=== PATIENT | male | born 1980 | race Caucasian/White ===

== ENCOUNTER 2017-01-22 10:31 | Emergency (ER) | payer BC ==
[~2017-01-22] VITALS: Ht 185.4 cm; Wt 101.0 kg
[2017-01-22 10:34] VITALS: Ht 185.4 cm; Wt 101.0 kg
[2017-01-22] MEDS ORDERED: ONDANSETRON 4 MG INJ IV STA (11:56)
[2017-01-22] MEDS ORDERED: SOD CHLORIDE 0.9% 500 ML IV ONE (12:00)
[2017-01-22 12:26] LABS: ADD SCAN DIFF NO
[2017-01-22 12:30] LABS: BASOPHIL # 0.1 10^3/ul (0.0-0.1); BASOPHILS % 0.6 % (0.0-2.0); EOSINOPHILS % 0.3 % (0.0-7.0); HEMATOCRIT 53.1 % (42.0-52.0); HEMOGLOBIN 18.3 g/dl (14.0-18.0); LYMPHOCYTES # 1.1 10^3/ul (0.8-2.9); LYMPHOCYTES % 11.8 % (15.0-51.0); MEAN CORPUSCULAR HEMOGLOBIN 30.8 pg (29.0-33.0); MEAN CORPUSCULAR HGB CONC 34.5 g/dl (32.0-37.0); MEAN CORPUSCULAR VOLUME 89.4 fl (82.0-101.0); MEAN PLATELET VOLUME 10.7 fl (7.4-10.4); MONOCYTE # 0.7 10^3/ul (0.3-0.9); NEUTROPHIL # 7.7 10^3/ul (1.6-7.5); NEUTROPHILS % 79.7 % (39.0-77.0); PLATELET COUNT 222 10^3/UL (140-415); RED BLOOD COUNT 5.94 10^6/ul (4.70-6.10); RED CELL DISTRIBUTION WIDTH 12.2 % (11.5-14.5); WHITE BLOOD COUNT 9.7 10^3/ul (4.8-10.8)
[2017-01-22 12:44] LABS: ALBUMIN 5.2 g/dl (3.3-4.9); ALBUMIN/GLOBULIN RATIO 1.79; BILIRUBIN,INDIRECT 0.3 mg/dl (0-1.1); BILIRUBIN,TOTAL 0.3 mg/dl (0.2-1.3); CREATININE 1.38 mg/dl (0.61-1.24); POTASSIUM 4.7 mmol/L (3.5-5.1); TOTAL PROTEIN 8.1 g/dl (6.1-8.1)
[2017-01-22 14:01] LABS: ADD UMIC YES; UR ASCORBIC ACID 20 mg/dL (NEGATIVE); UR BILIRUBIN (Dip) NEGATIVE (NEGATIVE); UR BLOOD (Dip) NEGATIVE (NEGATIVE); UR CLARITY SLIGHTLY CLOUDY (CLEAR); UR COLOR YELLOW (YELLOW); UR GLUCOSE (Dip) NEGATIVE (NEGATIVE); UR KETONES (Dip) TRACE mg/dL (NEGATIVE); UR LEUKOCYTE ESTERASE (Dip) NEGATIVE Leu/ul (NEGATIVE); UR MUCUS MANY /HPF (NONE SEEN); UR NITRITE (Dip) NEGATIVE (NEGATIVE); UR RBC 1 /HPF (0-5); UR SPECIFIC GRAVITY (Dip) 1.029 (1.003-1.030); UR TOTAL PROTEIN (Dip) 1+ mg/dl (NEGATIVE); UR UROBILINOGEN (Dip) 1+ mg/dL (NEGATIVE)
[2017-01-22 14:20] VITALS: BP 122/70; PULSE 90; RESP 18; TEMP 98.2
--- NOTE | 2017-01-22 15:39 | ERD ---
ER Documentation Chief Complaint Date/Time DATE: 01/22/17 TIME: 15:21 Chief Complaint dizziness, blurred vision, nausea x 1 hour HPI Patient is a 36-year-old male who presents to the emergency department for concerns of "difficulty focusing" and blurred vision which occurred 1 hour prior to arrival. Patient states that he return to work today after having the weekend off. Patient states when he sat down and rest as he felt as if "his eyes could not focus". Patient states he "felt off." Patient denied any dizziness or room spinning sensation. Patient denied any syncopal episodes. Upon arrival to examination room, patient states he does feel that his symptoms have improved. Patient denied any chest pain, shortness of breath, vomiting, left upper extremity pain, loss of consciousness. Patient is currently taking antibiotics for a wound he developed to his right upper foot after being at the [employer] this past weekend. Patient also reports a rash that developed on his bilateral lower extremities this morning. Patient denies any fevers or chills. ROS All systems reviewed and are negative except as per history of present illness. Allergies Allergies: Coded Allergies: No Known Allergy (Unverified , 01/22/17) PMhx/Soc History of Surgery: Yes (Bilateral shoulder, R knee) Anesthesia Reaction: No Hx Neurological Disorder: No Hx Respiratory Disorders: No Hx Cardiac Disorders: No Hx Psychiatric Problems: No Hx Miscellaneous Medical Probl: No Hx Alcohol Use: Yes (Socially) Hx Substance Use: No Hx Tobacco Use: No Smoking Status: Never smoker FmHx Family History: No diabetes Physical Exam Vitals Vital Signs Date Time Temp Pulse Resp B/P Pulse Ox O2 Delivery O2 Flow Rate FiO2 01/22/17 14:20 98.2 90 18 122/70 98 Room Air 01/22/17 12:20 128 18 134/72 98 Room Air 01/22/17 12:19 108 18 124/70 98 Room Air 01/22/17 12:19 105 20 124/75 98 Room Air Mask 01/22/17 10:34 97.3 123 18 152/97 97 Physical Exam GENERAL: Well-developed, well-nourished male. Appears in no acute distress. HEAD: Normocephalic, atraumatic. No deformities or ecchymosis. EYE: Pupils equal, round, and reactive to light. EOMs intact. No conjunctival erythema. No eye discharge. ENT: External ear without any masses or tenderness. Auditory canals clear bilaterally. TM visualized bilaterally, non-erythematous, non-bulging. Nasal mucosa pink with no discharge. Oropharynx is pink without any tonsillar erythema or exudates. No uvula deviation. No kissing tonsils. NECK: Supple. No meningismus. Normal ROM of the neck. LUNG: Clear to auscultation bilaterally. No rhonchi, wheezing, rales or coarse breath sounds. HEART: Regular rate and rhythm. No murmurs, rubs or gallops. ABDOMEN: Soft, nontender, and nondistended. Positive bowel sounds in all four quadrants. No rebound tenderness, no guarding. (-) McBurney's point tenderness. No CVA tenderness. BACK: No midline tenderness. EXTREMITIES: Equal pulses bilaterally. No peripheral clubbing, cyanosis or edema. No unilateral leg swelling. NEUROLOGIC: Alert and oriented x3, cooperative. Mood and affect appropriate to situation. Cranial nerves II through XII are grossly intact. Normal speech. Motor exam: 5/5 strength in upper and lower extremities. Sensory exam: Sensation intact to light touch on all four extremities. Cerebellar function exam: No dysmetria on [id number] test. Steady gait. No pronator drift. SKIN: Appears sunburned. +Folliculitis noted on bilateral lower extremities. Bandage removed from patient's right upper foot. Previously marked area of redness appears to be less. Minimal erythema surrounding wounds. No warmth, no discharge or active bleeding. Scabbed lesions below digits 3 through 5. Patient has normal range of motion of all toes and ankle.. Result Diagram: 01/22/17 1210 01/22/17 1210 Results 24 hrs Laboratory Tests Test 01/22/17 12:10 01/22/17 13:10 White Blood Count 9.710^3/ul Red Blood Count 5.9410^6/ul Hemoglobin 18.3g/dl Hematocrit 53.1% Mean Corpuscular Volume 89.4fl Mean Corpuscular Hemoglobin 30.8pg Mean Corpuscular Hemoglobin Concent 34.5g/dl Red Cell Distribution Width 12.2% Platelet Count 86223^3/UL Mean Platelet Volume 10.7fl Neutrophils % 79.7% Lymphocytes % 11.8% Monocytes % 7.0% Eosinophils % 0.3% Basophils % 0.6% Nucleated Red Blood Cells % 0.0/100WBC Neutrophils # 7.710^3/ul Lymphocytes # 1.110^3/ul Monocytes # 0.710^3/ul Eosinophils # 0.010^3/ul Basophils # 0.110^3/ul Nucleated Red Blood Cells # 0.010^3/ul Sodium Level 136mmol/L Potassium Level 4.7mmol/L Chloride Level 100mmol/L Carbon Dioxide Level 27mmol/L Anion Gap 14 Blood Urea Nitrogen 16mg/dl Creatinine 1.38mg/dl Glucose Level 84mg/dl Calcium Level 10.0mg/dl Total Bilirubin 0.3mg/dl Direct Bilirubin 0.00mg/dl Indirect Bilirubin 0.3mg/dl Aspartate Amino Transf (AST/SGOT) 44IU/L Alanine Aminotransferase (ALT/SGPT) 58IU/L Alkaline Phosphatase 78IU/L Total Protein 8.1g/dl Albumin 5.2g/dl Globulin 2.90g/dl Albumin/Globulin Ratio 1.79 Urine Color YELLOW Urine Clarity SLIGHTLY CLOUDY Urine pH 6.0 Urine Specific [place] 1.029 Urine Ketones TRACEmg/dL Urine Nitrite NEGATIVEmg/dL Urine Bilirubin NEGATIVEmg/dL Urine Urobilinogen 1+mg/dL Urine Leukocyte Esterase NEGATIVELeu/ul Urine Microscopic RBC 1/HPF Urine Microscopic WBC 3/HPF Urine Mucus MANY/HPF Urine Hemoglobin NEGATIVEmg/dL Urine Glucose NEGATIVEmg/dL Urine Total Protein 1+mg/dl Current Medications Medications (Trade) Dose Ordered Sig/Geovanni Route PRN Reason Start Time Stop Time Status Last Admin Dose Admin Sodium Chloride (NS) 500 ml @ 500 mls/hr Q1H ONCE IV 01/22/17 12:00 01/22/17 12:59 DC 01/22/17 12:21 Ondansetron HCl (Zofran Inj) 4 mg ONCE STAT IV 01/22/17 11:56 01/22/17 11:59 DC 01/22/17 12:22 Procedures/MDM ED COURSE: The patient was stable throughout ED course. I kept the patient and/or family informed of laboratory and diagnostic imaging results throughout the ED course. EKG: Read by Dr. Beasley, attending physician. EKG shows normal sinus rhythm at a rate of 98 bpm. No arrhythmias, acute ST elevations or T wave changes were noted. MEDICATIONS GIVEN: IV fluids MEDICAL DECISION MAKING: This is a 36-year-old male who presents with feelings of difficulty focusing, "feeling off" and nausea which started 1 hour prior to arrival. Any room spinning sensation. Patient does state that his symptoms have improved prior to arrival to the ED.. Vital signs were reviewed. Patient was afebrile. Patient was not hypoxic. Full neuro exam was normal. EKG was within normal limits. Patient had no evidence of a systemic infection. Patient's hemoglobin was noted to be 18.3. CMP showed no evidence of electrolyte abnormalities, severe acidosis, alkalosis or liver disease. Patient's creatinine was noted to be slightly elevated at 1.38. Urinalysis showed +WBC, +RBC, and many mucus. Low suspicion for UTI at this time. Patient denies any dysuria, frequency or hematuria. Patient's right foot wound did appear to be healing well. Patient' s rash on his bilateral lower extremities was consistent with folliculitis. Low suspicion for any worsening cellulitis, abscess formation, deep space infection, tendon or neurovascular injury. After receiving IV fluids, patient did feel that his symptoms are significantly improved. At this time, patient's presentation is most consistent with lightheadedness, elevated creatinine level and folliculitis. Low suspicion for intracranial hemorrhage, cerebral infarct, intracranial mass, multiple sclerosis, ear foreign body, acute otitis media. Low suspicion for significant electrolyte abnormalities. DISCHARGE: At this time, patient is stable for discharge and outpatient management. Patient was advised to continue Keflex and Bactrim as prescribed by previous physician who saw the patient for concerns of cellulitis. Patient was given a copy of all blood work and imaging studies obtained today. Patient was advised to follow-up with his primary care physician for repeat CMP to reevaluate creatinine. I have instructed the patient to follow-up with his/her primary care physician in 1-2 days. If symptoms persist, patient may need to see a specialist for further examinations and testing. I have instructed the patient to promptly return to the ER at any time for any new or worsening symptoms including increased increased pain, fever, nausea, vomiting, numbness, weakness , slurred speech, LOC. The patient and/or family expressed understanding of and agreement with this plan. All questions were answered. Home care instructions were provided. Departure Diagnosis: Primary Impression: Lightheadedness Condition: Good Patient Instructions: Possible Causes of Dizziness or Fainting Referrals: COMMUNITY CLINICS YOU HAVE RECEIVED A MEDICAL SCREENING EXAM AND THE RESULTS INDICATE THAT YOU DO NOT HAVE A CONDITION THAT REQUIRES URGENT TREATMENT IN THE EMERGENCY DEPARTMENT. FURTHER EVALUATION AND TREATMENT OF YOUR CONDITION CAN WAIT UNTIL YOU ARE SEEN IN YOUR DOCTORS OFFICE WITHIN THE NEXT 1-2 DAYS. IT IS YOUR RESPONSIBILITY TO MAKE AN APPOINTMENT FOR FOLOW-UP CARE. IF YOU HAVE A PRIMARY DOCTOR --you should call your primary doctor and schedule an appointment IF YOU DO NOT HAVE A PRIMARY DOCTOR YOU CAN CALL OUR PHYSICIAN REFERRAL HOTLINE AT IF YOU CAN NOT AFFORD TO SEE A PHYSICIAN YOU CAN CHOSE FROM THE FOLLOWING [facility] [address] [facility]. [facility] [address] [facility]. [facility] [address] [facility] [facility] [address] [facility]. [facility] [address] [facility]. [facility] [address] [facility]. [facility] YOU HAVE RECEIVED A MEDICAL SCREENING EXAM AND THE RESULTS INDICATE THAT YOU DO NOT HAVE A CONDITION THAT REQUIRES URGENT TREATMENT IN THE EMERGENCY DEPARTMENT. FURTHER EVALUATION AND TREATMENT OF YOUR CONDITION CAN WAIT UNTIL YOU ARE SEEN IN YOUR DOCTORS OFFICE WITHIN THE NEXT 1-2 DAYS. IT IS YOUR RESPONSIBILITY TO MAKE AN APPOINTMENT FOR FOLOW-UP CARE. IF YOU HAVE A PRIMARY DOCTOR --you should call your primary doctor and schedule and appointment IF YOU DO NOT HAVE A PRIMARY DOCTOR YOU CAN CALL OUR PHYSICIAN REFERRAL HOTLINE AT . IF YOU CAN NOT AFFORD TO SEE A PHYSICIAN YOU CAN CHOSE FROM THE FOLLOWING [facility] INSTITUTIONS: [facility] [address] [place] [address] [facility] [address] [place] [address] [facility] [address] [place] [address] Additional Instructions: Call your primary care doctor TOMORROW for an appointment during the next 1-2 days.See the doctor sooner or return here if your condition worsens before your appointment time. Follow up with your primary care physician for recheck of your elevated creatinine level. Drink plenty of fluids. Continue antibiotics as prescribed for foot wound. MELANIE ESTEBAN PA-C Jan 22, 2017 15:32
== END 2017-01-22 14:21 | disposition home or self-care (01) ==
LOC: FTE 10:31
DX: R42 Dizziness and giddiness (principal)
CPT/HCPCS: 36415; 80053; 81001; 85025; 96374; 99284; J2405; J7040; 93005